=== PATIENT | male | born 1950 | race African-American/Black ===

== ENCOUNTER 2017-10-23 15:54 | Emergency (ER) | payer MEDICARE ==
[~2017-10-23] VITALS: Ht 193 cm; Wt 102.1 kg
[2017-10-23] MEDS ORDERED: TRAMADOL HCL50 MG ORAL (15:59)
[2017-10-23] MEDS ORDERED: AMLODIPINE BESY10 MG ORAL (15:59)
[2017-10-23 16:49] VITALS: BP 145/73
[2017-10-23 16:56] LABS: BASOPHILS % (AUTO) 1.2 % (0.0-2.0); EOSINOPHILS % (AUTO) 1.5 % (0.0-3.0); HEMATOCRIT 38.8 % (42.0-52.0); HEMOGLOBIN 12.4 G/DL (14.2-18.0); LYMPHOCYTES % (AUTO) 23.6 % (20.0-45.0); MEAN CORPUSCULAR VOLUME 74 FL (80-99); MONOCYTES % (AUTO) 6.6 % (1.0-10.0); NEUTROPHILS % (AUTO) 67.2 % (45.0-75.0); PLATELET COUNT 234 K/UL (150-450); RED BLOOD COUNT 5.22 M/UL (4.70-6.10); RED CELL DISTRIBUTION WIDTH 11.5 % (11.6-14.8); WHITE BLOOD COUNT 10.2 K/UL (4.8-10.8)
[2017-10-23] MEDS ORDERED: Albuterol/Ipratropium 3ml neb HHN ONE (17:00)
[2017-10-23 17:01] LABS: ANION GAP 10 mmol/L (5-15); BLOOD UREA NITROGEN 13 mg/dL (7-18); CALCIUM 8.5 MG/DL (8.5-10.1); CARBON DIOXIDE 25 MMOL/L (21-32); CHLORIDE 106 MMOL/L (98-107); CREATININE 0.9 MG/DL (0.55-1.30); POTASSIUM 3.3 MMOL/L (3.5-5.1); SODIUM 141 MMOL/L (136-145)
[2017-10-23 17:05] LABS: ALANINE AMINOTRANSFERASE 28 U/L (12-78); ALBUMIN 3.7 G/DL (3.4-5.0); ALBUMIN/GLOBULIN RATIO 0.9 (1.0-2.7); ALKALINE PHOSPHATASE 99 U/L (46-116); ASPARTATE AMINO TRANSFERASE 20 U/L (15-37); BILIRUBIN,TOTAL 0.8 MG/DL (0.2-1.0)
[2017-10-23] MEDS ORDERED: Morphine Sulfate 4mg/ml Inj IVP ONE ×2 (17:15→20:15)
[2017-10-23] MEDS ORDERED: Ketorolac 30mg Inj IV ONE (17:15)
[2017-10-23 17:17] LABS: APPEARANCE,URINE CLEAR; BILIRUBIN, URINE NEGATIVE (NEGATIVE); GLUCOSE, URINE (UA) NEGATIVE (NEGATIVE); KETONES,URINE NEGATIVE (NEGATIVE); LEUKOCYTE ESTERASE ,URINE 1+ (NEGATIVE); NITRITE,URINE NEGATIVE (NEGATIVE); PH,URINE 6 (4.5-8.0); PROTEIN,URINE 1+ (NEGATIVE); UROBILINOGEN,URINE 4 MG/DL (0.0-1.0)
[2017-10-23 17:19] LABS: COLOR,URINE YELLOW
[2017-10-23] MEDS ORDERED: Lidocaine 2% 100mg/5ml Carp IV ONE (18:30)
[2017-10-23] MEDS ORDERED: Dicyclomine HCl 10mg/5ml oral soln ORAL ONE (18:30)
[2017-10-23] MEDS ORDERED: DICYCLOMINE HCL10 MG PO (18:32)
[2017-10-23] MEDS ORDERED: OMEPRAZOLE20 M2 ORAL (18:32)
[2017-10-23 19:38] VITALS: BP 142/91
[2017-10-23] MEDS ORDERED: DiphenhydrAMINE 50mg/ml Inj IVP ONE (20:15)
[2017-10-23 21:30] VITALS: BP 140/89
[2017-10-23 21:37] VITALS: BP 140/89
--- NOTE | 2017-10-23 22:04 | Emergency Room Report ---
History of Present Illness General Chief Complaint: Abdominal Pain Source: Patient, Medical Record Present Illness HPI Patient is a 67-year-old male who presented after increased left-sided abdominal pain. Patient reports having increased crampy abdominal pain which is sharp in nature. This waxed and waned. He reported having this constantly since approximately one week ago. He denies any black or bloody stools. He denies any prior history of kidney stones. He denied any urinary frequency or other urinary symptoms. He had not been vomiting. The patient prior history of chronic hip pain. He was taking tramadol for pain regularly. Allergies: Coded Allergies: No Known Allergies (Unverified , 10/23/17) Patient History Past Medical History: see triage record Reviewed Nursing Documentation: PMH: Agreed; PSxH: Agreed Nursing Documentation-PMH Past Medical History: No History, Except For Hx Hypertension: Yes Hx Neurological Problems: Yes - chronic right hip pain Review of Systems All Other Systems: negative except mentioned in HPI Physical Exam Vital Signs Date Time Temp Pulse Resp B/P (MAP) Pulse Ox O2 Delivery O2 Flow Rate FiO2 10/23/17 15:59 98.7 78 18 151/88 95 Room Air 98.8 Sp02 EP Interpretation: reviewed, normal General Appearance: normal inspection, well appearing, no apparent distress, alert, GCS 15 Head: atraumatic ENT: normal ENT inspection, hearing grossly normal, normal voice Neck: normal inspection, full range of motion, supple, no bony tend Respiratory: normal inspection, lungs clear, normal breath sounds, no respiratory distress, no retraction, no wheezing Cardiovascular #1: regular rate, rhythm, no edema Gastrointestinal: normal inspection, normal bowel sounds, non tender, soft, no guarding, no hernia Genitourinary: no CVA tenderness Musculoskeletal: normal inspection, back normal, normal range of motion Neurologic: normal inspection, alert, responsive, speech normal Psychiatric: normal inspection, judgement/insight normal, mood/affect normal Skin: normal inspection, normal color, no rash Medical Decision Making Diagnostic Impression: Primary Impression: Abdominal pain Additional Impressions: Renal cyst Liver lesion Renal lesion ER Course Patient presented for abdominal pain. Differential diagnoses included ischemic bowel, appendicitis, perforated viscus, abdominal aortic aneurysm, peptic ulcer disease. Inferior myocardial infarction, viral gastroenteritis Because of complexity of patient's case laboratory testing and imaging studies were ordered. Laboratory testing was unremarkable. Patient was noted to have the CT of abdomen and pelvis read by radiology which showed no evidence of acute appendicitis or different diverticulitis or bowel obstruction. The patient was given pain medications. He was advised to follow-up with GI for possible endoscopy and further workup.The patient is advised to return if he began having any increased pain or other concerns. He is given prescription for acid blockers as well as for antispasmodics. Labs Test 10/23/17 16:30 White Blood Count 10.2 K/UL (4.8-10.8) Red Blood Count 5.22 M/UL (4.70-6.10) Hemoglobin 12.4 G/DL (14.2-18.0) Hematocrit 38.8 % (42.0-52.0) Mean Corpuscular Volume 74 FL (80-99) Mean Corpuscular Hemoglobin 23.8 PG (27.0-31.0) Mean Corpuscular Hemoglobin Concent 32.0 G/DL (32.0-36.0) Red Cell Distribution Width 11.5 % (11.6-14.8) Platelet Count 234 K/UL (150-450) Mean Platelet Volume 7.5 FL (6.5-10.1) Neutrophils (%) (Auto) 67.2 % (45.0-75.0) Lymphocytes (%) (Auto) 23.6 % (20.0-45.0) Monocytes (%) (Auto) 6.6 % (1.0-10.0) Eosinophils (%) (Auto) 1.5 % (0.0-3.0) Basophils (%) (Auto) 1.2 % (0.0-2.0) Urine Color Yellow Urine Appearance Clear Urine pH 6 (4.5-8.0) Urine Specific [place] 1.020 (1.005-1.035) Urine Protein 1+ (NEGATIVE) Urine Glucose (UA) Negative (NEGATIVE) Urine Ketones Negative (NEGATIVE) Urine Occult Blood Negative (NEGATIVE) Urine Nitrite Negative (NEGATIVE) Urine Bilirubin Negative (NEGATIVE) Urine Urobilinogen 4 MG/DL (0.0-1.0) Urine Leukocyte Esterase 1+ (NEGATIVE) Urine RBC 0-2 /HPF (0 - 0) Urine WBC 0-2 /HPF (0 - 0) Urine Squamous Epithelial Cells None /LPF (NONE/OCC) Urine Amorphous Sediment Few /LPF (NONE) Urine Bacteria Few /HPF (NONE) Sodium Level 141 MMOL/L (136-145) Potassium Level 3.3 MMOL/L (3.5-5.1) Chloride Level 106 MMOL/L (98-107) Carbon Dioxide Level 25 MMOL/L (21-32) Anion Gap 10 mmol/L (5-15) Blood Urea Nitrogen 13 mg/dL (7-18) Creatinine 0.9 MG/DL (0.55-1.30) Estimat Glomerular Filtration Rate > 60 mL/min (>60) Glucose Level 105 MG/DL (74-106) Calcium Level 8.5 MG/DL (8.5-10.1) Total Bilirubin 0.8 MG/DL (0.2-1.0) Aspartate Amino Transf (AST/SGOT) 20 U/L (15-37) Alanine Aminotransferase (ALT/SGPT) 28 U/L (12-78) Alkaline Phosphatase 99 U/L (46-116) Total Protein 7.6 G/DL (6.4-8.2) Albumin 3.7 G/DL (3.4-5.0) Globulin 3.9 g/dL Albumin/Globulin Ratio 0.9 (1.0-2.7) Lipase 104 U/L (73-393) Last Vital Signs Date Time Temp Pulse Resp B/P (MAP) Pulse Ox O2 Delivery O2 Flow Rate FiO2 10/23/17 21:30 98.4 74 15 140/89 99 Room Air 98.4 Status: improved Disposition: HOME, SELF-CARE Condition: Stable Scripts Omeprazole (OMEPRAZOLE) 20 Mg Capsule.dr 20 MG ORAL DAILY, #30 CAP Prov: Regulo Lackey 10/23/17 Dicyclomine Hcl* (DICYCLOMINE HCL*) 10 Mg Capsule 10 MG PO QID, #30 CAP Prov: Regulo Lackey 10/23/17 Referrals: NOT CHOSEN IPA/,REFERRING VIVIEN GUADALUPE Patient Instructions: Abdominal Pain, Adult Additional Instructions: Follow up with GI for persistent left side abdominal pain. Regulo Lackey Oct 23, 2017 22:04
--- NOTE | 2017-10-24 10:05 | Diagnostic Imaging Report ---
Indication: Abdominal pain Technique: Continuous helical transaxial imaging of the abdomen and pelvis was obtained from the lung bases to the pubic symphysis during intravenous contrast administration. Coronal 2-D reformats were also obtained. Study obtained in a Siemens sensation [address] Automatic Exposure Control was utilized. Total Dose length Product (DLP): 1039.[address] Dose Index Volume (CTDIvol): 18.16 mGy Comparison: None Findings: Lung bases are clear. Small hiatal hernia noted. Low density cyst demonstrated in the medial segment left lobe of the liver. Spleen is unremarkable. Few calcifications in the toña hepatis adjacent to the caudate lobe of the liver noted nonspecific. The pancreas and gallbladder are unremarkable. There is no biliary ductal dilatation. There are hypodensities in the right kidney likely cysts. Appendix is normal. Diverticula in the sigmoid colon region noted. Prostate is prominent measuring 5.3 x 6.8 cm on transaxial images. Bladder is relatively nondistended. Arterial calcifications are present. IMPRESSION: No acute findings appreciated. Multitude of incidental findings as described above. Normal appendix. [facility] has communicated the preliminary results to the Emergency Department. Their findings are largely concordant with this report. The CT scanner at [facility] is accredited by the [employer] and the scans are performed using dose optimization techniques as appropriate to a performed exam including Automatic Exposure control.
--- NOTE | 2017-10-27 17:38 | Cardiology Report ---
APPROVED REPORT EKG Measurement Heart [id number] Normal sinus rhythm Normal ECG
== END 2017-10-23 21:40 | disposition home or self-care (01) ==
LOC: EMR 16:35
DX: R10.9 Unspecified abdominal pain (principal); N28.1 Cyst of kidney, acquired; K76.9 Liver disease, unspecified; I10 Essential (primary) hypertension; M25.551 Pain in right hip; G89.29 Other chronic pain
CPT/HCPCS: 36415; 74177; 80053; 81003; 83690; 85025; 86850; 86900; 86901; 93005; 96374; 96375; 99284; J1200; J1885; J2270; Q9967; J7620

== ENCOUNTER 2017-10-26 10:05 | Inpatient (IN) | payer MEDICARE ==
[~2017-10-26] VITALS: Ht 198.1 cm; Wt 102.1 kg
[2017-10-26] VITALS (7 sets, daily range): BP systolic 140–156; BP diastolic 84–95
[~2017-10-26 10:05] MED LIST: AMLODIPINE BESY10 MG ORAL; DICYCLOMINE HCL10 MG PO; OMEPRAZOLE20 M2 ORAL; TRAMADOL HCL50 MG ORAL
--- NOTE | 2017-10-26 10:27 | Emergency Room Report ---
History of Present Illness General Chief Complaint: Abdominal Pain Source: Patient, Medical Record Present Illness HPI The patient returns to emergency department. He's been having abdominal pain for one week. He was evaluated here October [address] scan done. The pain is left-sided seems to radiate from the stomach down through the anterior flank area. He's taking antispasmodic which has not been helping. The pain is constant and aching and has been gradually worsened. He rates the pain at 10/ 10. It was transiently improved with morphine when he was last here. Denies fever or chills. No vomiting or change in bowels. No dysuria. Never with this pain in the past. No URI sy, anxiety, headache, cough, chest pain. Allergies: Coded Allergies: No Known Allergies (Unverified , 10/23/17) Patient History Past Medical History: see triage record Social History: Denies: smoking, alcohol use Social History Narrative with sig other Reviewed Nursing Documentation: PMH: Agreed; PSxH: Agreed Nursing Documentation-PMH Past Medical History: No History, Except For Hx Hypertension: Yes Hx Neurological Problems: Yes - chronic right hip pain Review of Systems All Other Systems: negative except mentioned in HPI Physical Exam Vital Signs Date Time Temp Pulse Resp B/P (MAP) Pulse Ox O2 Delivery O2 Flow Rate FiO2 10/26/17 10:09 98.3 71 18 156/85 95 Room Air 98.2 Sp02 EP Interpretation: reviewed, normal General Appearance: well appearing, no apparent distress, GCS 15 Head: normocephalic Eyes: bilateral eye normal inspection, bilateral eye PERRL ENT: moist mucus membranes Neck: supple Respiratory: lungs clear, normal breath sounds Cardiovascular #1: regular rate, rhythm Cardiovascular #2: 2+ radial (R) Gastrointestinal: normal inspection, normal bowel sounds, no mass, non- distended, no rebound, guarding - minimal guarding L anterior flank, tenderness Genitourinary: no CVA tenderness Musculoskeletal: back normal, gait/station normal, normal range of motion Neurologic: alert, oriented x3, grossly normal Psychiatric: mood/affect normal Skin: normal inspection, warm/dry Medical Decision Making Diagnostic Impression: Primary Impression: Abdominal pain Qualified Codes: R10.9 - Unspecified abdominal pain Additional Impression: Diverticulitis ER Course Patient presents with left-sided abdominal pain for one week. Differential includes diverticulitis, gastritis, renal stone amongst others. With a normal CT showing diverticula, diverticulitis is most likely. The patient needs to be reevaluated with labs and abdominal films. Also due to his age EKG will be performed. The patient will receive IV hydration and analgesia. EKG is normal. Chest x-ray minimal cardiomegaly. Abdominal films nonspecific bowel gas pattern. Labs with normal white count. Urinalysis clear. The patient required several doses of pain medication and the pain was adequately controlled but still significant. The abdominal exam was not surgical. However due to the fact the pain was difficult to control in the emergency department the patient was admitted for observation IV antibiotics and analgesia. Admit med, Dr. Granger. Laboratory Tests Test 10/26/17 10:30 10/26/17 12:00 White Blood Count 10.4 K/UL (4.8-10.8) Red Blood Count 5.47 M/UL (4.70-6.10) Hemoglobin 13.0 G/DL (14.2-18.0) L Hematocrit 41.7 % (42.0-52.0) L Mean Corpuscular Volume 76 FL (80-99) L Mean Corpuscular Hemoglobin 23.8 PG (27.0-31.0) L Mean Corpuscular Hemoglobin Concent 31.3 G/DL (32.0-36.0) L Red Cell Distribution Width 12.1 % (11.6-14.8) Platelet Count 231 K/UL (150-450) Mean Platelet Volume 7.4 FL (6.5-10.1) Neutrophils (%) (Auto) 65.9 % (45.0-75.0) Lymphocytes (%) (Auto) 26.0 % (20.0-45.0) Monocytes (%) (Auto) 5.3 % (1.0-10.0) Eosinophils (%) (Auto) 1.7 % (0.0-3.0) Basophils (%) (Auto) 1.1 % (0.0-2.0) Prothrombin Time 10.0 SEC (9.30-11.50) Prothrombin Time INR 1.0 (0.9-1.1) PTT 28 SEC (23-33) Sodium Level 139 MMOL/L (136-145) Potassium Level 3.9 MMOL/L (3.5-5.1) Chloride Level 105 MMOL/L (98-107) Carbon Dioxide Level 24 MMOL/L (21-32) Anion Gap 10 mmol/L (5-15) Blood Urea Nitrogen 15 mg/dL (7-18) Creatinine 0.9 MG/DL (0.55-1.30) Estimate Glomerular Filtration Rate > 60 mL/min (>60) Glucose Level 122 MG/DL (74-106) H Calcium Level 9.0 MG/DL (8.5-10.1) Total Bilirubin 0.9 MG/DL (0.2-1.0) Aspartate Amino Transferase (AST) 22 U/L (15-37) Alanine Aminotransferase (ALT) 25 U/L (12-78) Alkaline Phosphatase 96 U/L (46-116) Troponin I 0.000 ng/mL (0.000-0.056) Total Protein 7.8 G/DL (6.4-8.2) Albumin 3.9 G/DL (3.4-5.0) Globulin 3.9 g/dL Albumin/Globulin Ratio 1.0 (1.0-2.7) Lipase 160 U/L (73-393) Urine Color Pale yellow Urine Appearance Clear Urine pH 6.5 (4.5-8.0) Urine Specific [place] 1.010 (1.005-1.035) Urine Protein Negative (NEGATIVE) Urine Glucose (UA) Negative (NEGATIVE) Urine Ketones Negative (NEGATIVE) Urine Occult Blood Negative (NEGATIVE) Urine Nitrite Negative (NEGATIVE) Urine Bilirubin Negative (NEGATIVE) Urine Urobilinogen Normal MG/DL (0.0-1.0) Urine Leukocyte Esterase Negative (NEGATIVE) EKG Diagnostic Results Rate: normal Rhythm: NSR ST Segments: no acute changes Rhythm Strip Diag. Results EP Interpretation: yes Rhythm: NSR, no PVC's, no ectopy Chest X-Ray Diagnostic Results Chest X-Ray Diagnostic Results : Chest X-Ray Ordered: Yes # of Views/Limited/Complete: 1 View Indication: Other EP Interpretation: Yes Interpretation: no consolidation, no effusion, no pneumothorax Impression: No acute disease Electronically Signed by: Electronically signed by Rommel Barahona MD Other X-Ray Diagnostic Results Other X-Ray Diagnostic Results : X-Ray ordered: Abdomen # of Views/Limited Vs Complete: 2 View Indication: Pain EP Interpretation: Yes Interpretation: nonspecific bowel gas, no sbo, other - No masses Impression: Other Electronically Signed by: Electronically signed by Rommel Barahona MD Last Vital Signs Date Time Temp Pulse Resp B/P (MAP) Pulse Ox O2 Delivery O2 Flow Rate FiO2 10/26/17 13:57 97.9 68 18 140/95 93 97.9 10/26/17 13:19 Room Air Status: improved Disposition: ADMITTED INPATIENT Condition: Serious Referrals: NON PHYSICIAN (PCP) Rommel Barahona M.D. Oct 26, 2017 10:27
[2017-10-26] MEDS ORDERED: DiphenhydrAMINE 50mg/ml Inj IVP ONE ×2 (10:30→11:15)
[2017-10-26] MEDS ORDERED: fentaNYL 100 mcg/2 mL IV ONE (10:30)
[2017-10-26 10:43] LABS: BASOPHILS % (AUTO) 1.1 % (0.0-2.0); EOSINOPHILS % (AUTO) 1.7 % (0.0-3.0); HEMATOCRIT 41.7 % (42.0-52.0); MEAN CORPUSCULAR VOLUME 76 FL (80-99); MONOCYTES % (AUTO) 5.3 % (1.0-10.0); NEUTROPHILS % (AUTO) 65.9 % (45.0-75.0); PLATELET COUNT 231 K/UL (150-450); RED BLOOD COUNT 5.47 M/UL (4.70-6.10); RED CELL DISTRIBUTION WIDTH 12.1 % (11.6-14.8); WHITE BLOOD COUNT 10.4 K/UL (4.8-10.8)
[2017-10-26 11:14] LABS: ANION GAP 10 mmol/L (5-15); BLOOD UREA NITROGEN 15 mg/dL (7-18); CARBON DIOXIDE 24 MMOL/L (21-32); CHLORIDE 105 MMOL/L (98-107); CREATININE 0.9 MG/DL (0.55-1.30); POTASSIUM 3.9 MMOL/L (3.5-5.1); SODIUM 139 MMOL/L (136-145)
[2017-10-26] MEDS ORDERED: HYDROmorphone 1mg/ml Carpuject IVP ONE (11:15)
[2017-10-26 11:18] LABS: ALANINE AMINOTRANSFERASE 25 U/L (12-78); ALBUMIN 3.9 G/DL (3.4-5.0); ALKALINE PHOSPHATASE 96 U/L (46-116); ASPARTATE AMINO TRANSFERASE 22 U/L (15-37); BILIRUBIN,TOTAL 0.9 MG/DL (0.2-1.0)
--- NOTE | 2017-10-26 11:22 | Diagnostic Imaging Report ---
Indication: Abdominal pain Technique: Supine view of the abdomen Comparison: none Findings: Bowel gas pattern is unremarkable. No unusual masses or calcifications. Impression: No acute process
--- NOTE | 2017-10-26 11:23 | Diagnostic Imaging Report ---
Indication: Cough Technique: One view of the chest Comparison: none Findings: Lungs and pleural spaces are clear. Heart size is normal. There is degenerative thoracic spondylosis is incidentally noted Impression: No acute process
[2017-10-26 12:08] LABS: APPEARANCE,URINE CLEAR; BILIRUBIN, URINE NEGATIVE (NEGATIVE); COLOR,URINE PALE YELLOW; GLUCOSE, URINE (UA) NEGATIVE (NEGATIVE); KETONES,URINE NEGATIVE (NEGATIVE); LEUKOCYTE ESTERASE ,URINE NEGATIVE (NEGATIVE); NITRITE,URINE NEGATIVE (NEGATIVE); PH,URINE 6.5 (4.5-8.0); PROTEIN,URINE NEGATIVE (NEGATIVE); UROBILINOGEN,URINE NORMAL MG/DL (0.0-1.0)
[2017-10-26] MEDS ORDERED: Cefepime HCl 1 GM in D5W 55 ML IVPB ONE (12:15)
[2017-10-26] MEDS ORDERED: DiphenhydrAMINE 50mg/ml Inj IVP PRN (14:30)
[2017-10-26] MEDS: D5 1/2NS 1,000 ML IV SCH (16:01)
[2017-10-26] MEDS: traMADol 50mg tab ORAL PRN ×2 (17:56→23:23)
[2017-10-27] VITALS (10 sets, daily range): BP systolic 132–144; BP diastolic 5–89
--- NOTE | 2017-10-27 02:45 | Consultation ---
DATE OF CONSULTATION: 10/26/2017 GASTROENTEROLOGY CONSULTATION CONSULTING PHYSICIAN: Abner Moncada M.D. CHIEF COMPLAINT: I was asked to see this patient by Dr. Debbie Granger for evaluation of abdominal pain. HISTORY OF PRESENT ILLNESS: The patient is a pleasant 67-year-old male, who comes in to the hospital with one week of abdominal pain. He has no nausea or vomiting and his bowel movements are regular without any bleeding. The pain is unchanged with bowel movements or oral intake. He states that the pain is constant all day. This is a new pain and he did not have this before. He has had a colonoscopy about a year ago and some polyps were found. This was done at [place]. He denies any gastroesophageal reflux symptoms. CT scan done on 10/23/2017 when he came to the emergency room only showed diverticulosis. He went home and was readmitted due to a second emergency room presentation. He did have a small pacth of papules on his left torso. It is unclear whether it is shingles since is only a single patch. PAST MEDICAL HISTORY: History of hypertension, history of prostate enlargement, and history of neuropathy. MEDICATIONS: See the chart list for details. FAMILY HISTORY: Positive for brother having cancer. SOCIAL HISTORY: The patient is . He does not smoke or drink. REVIEW OF SYSTEMS: Otherwise negative. PHYSICAL EXAMINATION: GENERAL: This is a pleasant 67-year-old man, seen in his room. HEENT: Normocephalic and atraumatic. Sclerae anicteric. Oropharynx clear. NECK: Supple. CHEST: Clear to auscultation with a small patch of induration and possible blistering papules in the left chest wall posterior. ABDOMEN: Soft and nontender with good bowel sounds. EXTREMITIES: No edema. LABORATORY DATA: Laboratory data were noted. ASSESSMENT: This patient presents with constant abdominal pain of unclear etiology. Differential diagnosis from a gastrointestinal standpoint include peptic ulcer disease and therefore an endoscopy to be done to evaluate the upper GI tract. However, there is also a patch of blisters and papules on the left torso and therefore the possibility of shingles causing the pain can also be considered. There is only one patch and therefore the classic shingles presentation is not there. In addition, the patient's pain appears to significantly earlier than the stage of this skin patch. Nonetheless, that could be another consideration for atypical abdominal pain. The patient does state that the abdominal pain seems to radiate around his torso. RECOMMENDATIONS: 1. Endoscopy tomorrow. 2. Follow possible shingles. 3. Consider Dermatology or ID evaluation for papular patch on the left torso. Thank you for asking me to participate in the care of this patient. Abner Moncada M.D. DR: GIUSEPPE JOB#: [id number] CC: JOY
[2017-10-27] MEDS: D5 1/2NS 1,000 ML IV SCH ×2 (06:54→11:48)
--- NOTE | 2017-10-27 07:31 | Anethesia Preoperative Eval ---
Anesthesia Pre-op PMH/ROS General Date of Evaluation: Oct 27, 2017 Time of Evaluation: 07:31 Anesthesiologist: mayra ASA Score: ASA 3 Mallampati Score Class I : Soft palate, uvula, fauces, pillars visible Class II: Soft palate, uvula, fauces visible Class III: Soft palate, base of uvula visible Class IV: Only hard plate visible Mallampati Classification: Class II Surgeon: missy Diagnosis: abdominal pain Surgical Procedure: egd Anesthesia History: PONV Social History: smoking - nonsmoker Family History: no anesthesia problems Allergies: Coded Allergies: No Known Allergies (Unverified , 10/23/17) Medications: see eMAR Past Medical History Cardiovascular: Reports: HTN Gastrointestinal/Genitourinary: Reports: other - liver disease Anesthesia Pre-op Phys. Exam Physician Exam Last Vital Signs Date Time Temp Pulse Resp B/P (MAP) Pulse Ox O2 Delivery O2 Flow Rate FiO2 10/27/17 06:00 97.7 63 18 138/76 93 97.7 10/26/17 13:19 Room Air Constitutional: NAD Neurologic: CN 2-12 intact Cardiovascular: RRR Respiratory: CTA Gastrointestinal: S/NT/ND Airway Exam Mallampati Score: Class II MO: full Neck: supple TMD: 2fb ROM: full Teeth: loose Anesthesia Pre-op A/P Labs Hematology Test 10/26/17 10:30 White Blood Count 10.4 K/UL (4.8-10.8) Red Blood Count 5.47 M/UL (4.70-6.10) Hemoglobin 13.0 G/DL (14.2-18.0) L Hematocrit 41.7 % (42.0-52.0) L Mean Corpuscular Volume 76 FL (80-99) L Mean Corpuscular Hemoglobin 23.8 PG (27.0-31.0) L Mean Corpuscular Hemoglobin Concent 31.3 G/DL (32.0-36.0) L Red Cell Distribution Width 12.1 % (11.6-14.8) Platelet Count 231 K/UL (150-450) Mean Platelet Volume 7.4 FL (6.5-10.1) Neutrophils (%) (Auto) 65.9 % (45.0-75.0) Lymphocytes (%) (Auto) 26.0 % (20.0-45.0) Monocytes (%) (Auto) 5.3 % (1.0-10.0) Eosinophils (%) (Auto) 1.7 % (0.0-3.0) Basophils (%) (Auto) 1.1 % (0.0-2.0) Coagulation Test 10/26/17 10:30 Prothrombin Time 10.0 SEC (9.30-11.50) Prothromb Time International Ratio 1.0 (0.9-1.1) Activated Partial Thromboplast Time 28 SEC (23-33) Chemistry Test 10/26/17 10:30 Sodium Level 139 MMOL/L (136-145) Potassium Level 3.9 MMOL/L (3.5-5.1) Chloride Level 105 MMOL/L (98-107) Carbon Dioxide Level 24 MMOL/L (21-32) Anion Gap 10 mmol/L (5-15) Blood Urea Nitrogen 15 mg/dL (7-18) Creatinine 0.9 MG/DL (0.55-1.30) Estimat Glomerular Filtration Rate > 60 mL/min (>60) Glucose Level 122 MG/DL (74-106) H Calcium Level 9.0 MG/DL (8.5-10.1) Total Bilirubin 0.9 MG/DL (0.2-1.0) Aspartate Amino Transf (AST/SGOT) 22 U/L (15-37) Alanine Aminotransferase (ALT/SGPT) 25 U/L (12-78) Alkaline Phosphatase 96 U/L (46-116) Troponin I 0.000 ng/mL (0.000-0.056) Total Protein 7.8 G/DL (6.4-8.2) Albumin 3.9 G/DL (3.4-5.0) Globulin 3.9 g/dL Albumin/Globulin Ratio 1.0 (1.0-2.7) Lipase 160 U/L (73-393) Risk Assessment & Plan Assessment: asa3 Plan: mac Status Change Before Surgery: No Pre-Antibiotics Drug: ROSITA Tate Oct 27, 2017 07:31
[2017-10-27] MEDS ORDERED: Midazolam 2mg/2ml Inj IVP PRN (07:45)
[2017-10-27] MEDS ORDERED: Atropine Inj 1mg/10ml Syr IV PRN (07:45)
[2017-10-27] MEDS ORDERED: DiphenhydrAMINE 50mg/ml Inj IVP PRN (07:45)
[2017-10-27] MEDS ORDERED: fentaNYL 100 mcg/2 mL IV PRN (07:45)
[2017-10-27] MEDS ORDERED: Propofol 200mg/20ml IV ONE (08:00)
[2017-10-27] MEDS ORDERED: Lidocaine 1% MPF 10mg/ml 5ml ONE (08:00)
[2017-10-27] MEDS ORDERED: NS 500ML IV ONE (08:20)
--- NOTE | 2017-10-27 08:36 | Pre-Procedure Note/Attestation ---
Pre-Procedure Note/Attestation Complete Prior to Procedure Planned Procedure: not applicable Procedure Narrative: egd Indications for Procedure Pre-Operative Diagnosis: abd pain Attestation I attest that I discussed the nature of the procedure; its benefits; risks and complications; and alternatives (and the risks and benefits of such alternatives ), prior to the procedure, with the patient (or the patient's legal hardware supplies sales representative). I attest that, if there was a reasonable possibility of needing a blood transfusion, the patient (or the patient's legal hardware supplies sales representative) was given the [facility] standardized written summary, pursuant to the Jeffery Elian Blood Safety Act ([place] Health and Safety Code # 1645, as amended). I attest that I re-evaluated the patient just prior to the surgery and that there has been no change in the patient's H&P, except as documented below: KYREE GERMAIN Oct 27, 2017 08:36
--- NOTE | 2017-10-27 08:44 | Consultation ---
History of Present Illness General Date patient seen: Oct 27, 2017 Time patient seen: 07:30 - am Chief Complaint: Abdominal Pain Referring physician: Dr. Granger Reason for Consultation: Pain Present Illness HPI Patient admitted under the care of Dr. Granger c/o abdominal pain. He had also had h/o right hip pain recently receiving and injection. Now has also developed a rash on his hip and low back seen by ID and started on Acyclovir. We were consulted so patient would have adequate pain control while her in the hospital. Allergies: Coded Allergies: No Known Allergies (Unverified , 10/23/17) Medication History Scheduled Amlodipine Besylate* (Amlodipine Besylate*), 10 MG ORAL DAILY, (Reported) Dicyclomine Hcl* (Dicyclomine Hcl*), 10 MG PO QID Omeprazole (Omeprazole), 20 MG ORAL DAILY Scheduled PRN Tramadol Hcl* (Ultram*), 50 MG ORAL Q6H PRN for For Pain, (Reported) Patient History Healthcare decision maker Resuscitation status Full Code Advanced Directive on File Past Medical/Surgical History Past Medical/Surgical History: (1) Liver lesion (2) Renal lesion (3) Renal cyst (4) Diverticulitis Social History Social History: (1) H/O alcohol dependence Review of Systems Constitutional: Reports: no symptoms Eye: Reports: no symptoms ENT: Reports: no symptoms Respiratory: Reports: no symptoms Cardiovascular: Reports: no symptoms Gastrointestinal: Reports: abdominal pain Genitourinary: Reports: no symptoms Musculoskeletal: Reports: no symptoms Skin: Reports: rash, lesions Psychiatric: Reports: no symptoms Neurological: Reports: no symptoms Endocrine: Reports: no symptoms Hematologic/Lymphatic: Reports: no symptoms Physical Exam General Appearance: WD/WN, no apparent distress HEENT: PERRL, EOMI Neck: non-tender, normal alignment, supple Respiratory/Chest: lungs clear, normal breath sounds Cardiovascular/Chest: normal rate, regular rhythm Abdomen: soft, tender Extremities: non-tender, normal inspection Neurologic: alert, oriented x 3, responsive Physical Exam Narrative Rash in the left side in lower hips, and a little bit area in the back seems to have dermatomal appearance. Last 24 Hour Vital Signs Date Time Temp Pulse Resp B/P (MAP) Pulse Ox O2 Delivery O2 Flow Rate FiO2 10/27/17 06:00 97.7 63 18 138/76 93 97.7 10/27/17 00:00 98.1 62 16 140/84 93 98.1 10/26/17 21:00 97.6 80 17 153/86 94 97.6 10/26/17 15:45 97.7 68 18 145/86 95 97.7 10/26/17 13:57 97.9 68 18 140/95 93 97.9 10/26/17 13:51 97.9 68 18 140/95 93 97.9 10/26/17 13:19 98.2 56 18 151/84 95 Room Air 10/26/17 13:14 56 18 151/84 95 Room Air 10/26/17 12:08 98.2 10/26/17 12:08 98.2 10/26/17 12:01 79 18 151/86 95 Room Air 10/26/17 11:31 98.2 10/26/17 10:34 98.2 10/26/17 10:18 98.2 18 156/85 95 Room Air 98.2 10/26/17 10:09 98.3 71 18 156/85 95 Room Air 98.2 Intake and Output 10/26/17 10/27/17 19:00 07:00 Intake Total 1195 ml 780 ml Output Total 1100 ml Balance 1195 ml -320 ml Intake Oral 0 ml IV Total 1195 ml 780 ml Output Urine Total 1100 ml # Voids 2 Laboratory Tests Test 10/26/17 10:30 10/26/17 12:00 10/27/17 07:45 White Blood Count 10.4 K/UL (4.8-10.8) Pending Red Blood Count 5.47 M/UL (4.70-6.10) Pending Hemoglobin 13.0 G/DL (14.2-18.0) L Pending Hematocrit 41.7 % (42.0-52.0) L Pending Mean Corpuscular Volume 76 FL (80-99) L Pending Mean Corpuscular Hemoglobin 23.8 PG (27.0-31.0) L Pending Mean Corpuscular Hemoglobin Concent 31.3 G/DL (32.0-36.0) L Pending Red Cell Distribution Width 12.1 % (11.6-14.8) Pending Platelet Count 231 K/UL (150-450) Pending Mean Platelet Volume 7.4 FL (6.5-10.1) Pending Neutrophils (%) (Auto) 65.9 % (45.0-75.0) Pending Lymphocytes (%) (Auto) 26.0 % (20.0-45.0) Pending Monocytes (%) (Auto) 5.3 % (1.0-10.0) Pending Eosinophils (%) (Auto) 1.7 % (0.0-3.0) Pending Basophils (%) (Auto) 1.1 % (0.0-2.0) Pending Prothrombin Time 10.0 SEC (9.30-11.50) Prothromb Time International Ratio 1.0 (0.9-1.1) Activated Partial Thromboplast Time 28 SEC (23-33) Sodium Level 139 MMOL/L (136-145) Pending Potassium Level 3.9 MMOL/L (3.5-5.1) Pending Chloride Level 105 MMOL/L (98-107) Pending Carbon Dioxide Level 24 MMOL/L (21-32) Pending Anion Gap 10 mmol/L (5-15) Blood Urea Nitrogen 15 mg/dL (7-18) Pending Creatinine 0.9 MG/DL (0.55-1.30) Pending Estimat Glomerular Filtration Rate > 60 mL/min (>60) Pending Glucose Level 122 MG/DL (74-106) H Pending Calcium Level 9.0 MG/DL (8.5-10.1) Pending Total Bilirubin 0.9 MG/DL (0.2-1.0) Pending Aspartate Amino Transf (AST/SGOT) 22 U/L (15-37) Pending Alanine Aminotransferase (ALT/SGPT) 25 U/L (12-78) Pending Alkaline Phosphatase 96 U/L (46-116) Pending Troponin I 0.000 ng/mL (0.000-0.056) Total Protein 7.8 G/DL (6.4-8.2) Pending Albumin 3.9 G/DL (3.4-5.0) Pending Globulin 3.9 g/dL Pending Albumin/Globulin Ratio 1.0 (1.0-2.7) Lipase 160 U/L (73-393) Urine Color Pale yellow Urine Appearance Clear Urine pH 6.5 (4.5-8.0) Urine Specific [place] 1.010 (1.005-1.035) Urine Protein Negative (NEGATIVE) Urine Glucose (UA) Negative (NEGATIVE) Urine Ketones Negative (NEGATIVE) Urine Occult Blood Negative (NEGATIVE) Urine Nitrite Negative (NEGATIVE) Urine Bilirubin Negative (NEGATIVE) Urine Urobilinogen Normal MG/DL (0.0-1.0) Urine Leukocyte Esterase Negative (NEGATIVE) Height (Feet): 6 Height (Inches): 6.00 Weight (Pounds): 225 Medications Current Medications Medications (Trade) Dose Ordered Sig/Dalia Route PRN Reason Start Time Stop Time Status Last Admin Dose Admin Al Hydroxide/Mg Hydroxide (Mylanta) 15 ml Q1H PRN ORAL gi upset 10/27/17 07:45 10/27/17 16:00 Amlodipine Besylate (Norvasc) 10 mg DAILY ORAL 10/27/17 09:00 11/26/17 08:59 Atropine Sulfate (Atropine) 0.5 mg Q5M PRN IV HR less than 45BPM 10/27/17 07:45 10/27/17 16:00 Dextrose/Sodium Chloride 1,000 ml @ 65 mls/hr [id number] IV 10/26/17 15:30 11/25/17 15:29 10/26/17 16:01 Diphenhydramine HCl (Benadryl) 25 mg Q15M PRN IVP Itching 10/27/17 07:45 10/27/17 16:00 Diphenhydramine HCl (Benadryl) 25 mg Q6H PRN IVP Itching 10/26/17 14:30 11/25/17 14:29 10/27/17 01:37 Fentanyl Citrate (Sublimaze 100 mcg/2 mL) 25 mcg Q10M PRN IV Moderate Pain (Pain Scale 4-6) 10/27/17 07:45 10/27/17 16:00 Hydralazine HCl (Apresoline) 5 mg Q30M PRN IV SBP>160/DBP>90 10/27/17 07:45 10/27/17 16:00 Midazolam HCl (Versed 2mg/2ml vial) 1 mg Q15M PRN IVP For Anxiety 10/27/17 07:45 10/27/17 16:00 Ondansetron HCl (Zofran) 4 mg Q1H PRN IVP Nausea & Vomiting 10/27/17 07:45 10/27/17 16:00 Ondansetron HCl (Zofran) 4 mg Q6H PRN IVP Nausea & Vomiting 10/26/17 14:30 11/25/17 14:29 Pantoprazole (Protonix) 40 mg DAILY ORAL 10/27/17 09:00 11/26/17 08:59 Sodium Chloride 1,000 ml @ 10 mls/hr Q24H IVLG 10/27/17 07:36 10/27/17 09:35 Tramadol HCl (Ultram) 50 mg EVERY 4 HOURS PRN ORAL pain 10/26/17 16:45 11/02/17 16:44 10/26/17 23:23 Assessment/Plan Assessment/Plan (1) Abdominal pain (2) Right hip pain (3) Right hip OA (4) Herpes Zoster (5) Neuropathic pain We will started Tramadol 50mg PO 1 tab Q4H PRN severe pain and Lyrica 50mg PO 1 tab TID. D/W Dr. Bettencourt and he concurred. Thank you for consult PETE COMER Oct 27, 2017 08:44
[2017-10-27 08:49] LABS: EOSINOPHILS % (AUTO) 2.2 % (0.0-3.0); HEMOGLOBIN 12.6 G/DL (14.2-18.0); LYMPHOCYTES % (AUTO) 25.4 % (20.0-45.0); MEAN CORPUSCULAR VOLUME 76 FL (80-99); MONOCYTES % (AUTO) 4.9 % (1.0-10.0); NEUTROPHILS % (AUTO) 66.6 % (45.0-75.0); PLATELET COUNT 244 K/UL (150-450); RED BLOOD COUNT 5.23 M/UL (4.70-6.10); WHITE BLOOD COUNT 10.3 K/UL (4.8-10.8)
[2017-10-27 09:10] LABS: ALANINE AMINOTRANSFERASE 26 U/L (12-78); ALBUMIN 3.8 G/DL (3.4-5.0); ALKALINE PHOSPHATASE 83 U/L (46-116); ANION GAP 6 mmol/L (5-15); ASPARTATE AMINO TRANSFERASE 23 U/L (15-37); BILIRUBIN,TOTAL 1.3 MG/DL (0.2-1.0); BLOOD UREA NITROGEN 10 mg/dL (7-18); CALCIUM 8.8 MG/DL (8.5-10.1); CARBON DIOXIDE 29 MMOL/L (21-32); CHLORIDE 104 MMOL/L (98-107); POTASSIUM 3.9 MMOL/L (3.5-5.1); SODIUM 139 MMOL/L (136-145)
--- NOTE | 2017-10-27 09:45 | General Progress Note ---
Assessment/Plan Assessment/Plan Assessment - abd pain, ? etiology - suspected shingles, (L) torso Recommendations - EGD today - lidoderm patch to skin - po ad adan ENDOSCOPY FINDINGS - non erosive proximal gastritis - biopied - no finding to explain pain - suspect pain due to shingles Subjective Allergies: Coded Allergies: No Known Allergies (Unverified , 10/23/17) Subjective Feels OK/same no new complaints Objective Last 24 Hour Vital Signs Date Time Temp Pulse Resp B/P (MAP) Pulse Ox O2 Delivery O2 Flow Rate FiO2 10/27/17 09:13 98.3 66 20 140/5 98 Room Air 98.3 10/27/17 09:00 70 18 136/85 98 Nasal Cannula 3.0 10/27/17 08:52 67 21 132/80 98 Nasal Cannula 3.0 10/27/17 08:47 98.0 75 14 144/89 98 Nasal Cannula 3.0 98.0 10/27/17 06:00 97.7 63 18 138/76 93 97.7 10/27/17 00:00 98.1 62 16 140/84 93 98.1 10/26/17 21:00 97.6 80 17 153/86 94 97.6 10/26/17 15:45 97.7 68 18 145/86 95 97.7 10/26/17 13:57 97.9 68 18 140/95 93 97.9 10/26/17 13:51 97.9 68 18 140/95 93 97.9 10/26/17 13:19 98.2 56 18 151/84 95 Room Air 10/26/17 13:14 56 18 151/84 95 Room Air 10/26/17 12:08 98.2 10/26/17 12:08 98.2 10/26/17 12:01 79 18 151/86 95 Room Air 10/26/17 11:31 98.2 10/26/17 10:34 98.2 10/26/17 10:18 98.2 18 156/85 95 Room Air 98.2 10/26/17 10:09 98.3 71 18 156/85 95 Room Air 98.2 Intake and Output 10/26/17 10/27/17 19:00 07:00 Intake Total 1195 ml 780 ml Output Total 1100 ml Balance 1195 ml -320 ml Intake Oral 0 ml IV Total 1195 ml 780 ml Output Urine Total 1100 ml # Voids 2 Laboratory Tests 10/26/17 10:30: White Blood Count 10.4, Red Blood Count 5.47, Hemoglobin 13.0L, Hematocrit 41.7L , Mean Corpuscular Volume 76L, Mean Corpuscular Hemoglobin 23.8L, Mean Corpuscular Hemoglobin Concent 31.3L, Red Cell Distribution Width 12.1, Platelet Count 231, Mean Platelet Volume 7.4, Neutrophils (%) (Auto) 65.9, Lymphocytes (%) (Auto) 26.0, Monocytes (%) (Auto) 5.3, Eosinophils (%) (Auto) 1.7, Basophils (%) (Auto) 1.1, Prothrombin Time 10.0, Prothromb Time International Ratio 1.0, Activated Partial Thromboplast Time 28, Sodium Level 139, Potassium Level 3.9, Chloride Level 105, Carbon Dioxide Level 24, Anion Gap 10, Blood Urea Nitrogen 15, Creatinine 0.9, Estimat Glomerular Filtration Rate > 60, Glucose Level 122H, Calcium Level 9.0, Total Bilirubin 0.9, Aspartate Amino Transf (AST/SGOT) 22, Alanine Aminotransferase (ALT/SGPT) 25, Alkaline Phosphatase 96, Troponin I 0.000, Total Protein 7.8, Albumin 3.9, Globulin 3.9, Albumin/Globulin Ratio 1.0, Lipase 160 10/26/17 12:00: Urine Color Pale yellow, Urine Appearance Clear, Urine pH 6.5, Urine Specific [place] 1.010, Urine Protein Negative, Urine Glucose (UA) Negative, Urine Ketones Negative, Urine Occult Blood Negative, Urine Nitrite Negative, Urine Bilirubin Negative, Urine Urobilinogen Normal, Urine Leukocyte Esterase Negative 10/27/17 07:45: White Blood Count 10.3, Red Blood Count 5.23, Hemoglobin 12.6L, Hematocrit 40.0L , Mean Corpuscular Volume 76L, Mean Corpuscular Hemoglobin 24.0L, Mean Corpuscular Hemoglobin Concent 31.4L, Red Cell Distribution Width 12.0, Platelet Count 244, Mean Platelet Volume 8.3, Neutrophils (%) (Auto) 66.6, Lymphocytes (%) (Auto) 25.4, Monocytes (%) (Auto) 4.9, Eosinophils (%) (Auto) 2.2, Basophils (%) (Auto) 1.0, Sodium Level 139, Potassium Level 3.9, Chloride Level 104, Carbon Dioxide Level 29, Anion Gap 6, Blood Urea Nitrogen 10, Creatinine 1.0, Estimat Glomerular Filtration Rate > 60, Glucose Level 104, Calcium Level 8.8, Total Bilirubin 1.3H, Aspartate Amino Transf (AST/SGOT) 23, Alanine Aminotransferase (ALT/SGPT) 26, Alkaline Phosphatase 83, Total Protein 7.5, Albumin 3.8, Globulin 3.7, Albumin/Globulin Ratio 1.0, Direct Bilirubin [ Pending] Height (Feet): 6 Height (Inches): 6.00 Weight (Pounds): 225 Objective WDWN AA man NCAT supple CTA RRR soft NT ND no edema non focal skin: grouped vesicle/papule KYREE Whitfield Oct 27, 2017 09:44
[2017-10-27] MEDS: traMADol 50mg tab ORAL PRN ×3 (09:51→21:02)
[2017-10-27 10:30] LABS: BILIRUBIN,DIRECT 0.2 MG/DL (0.0-0.3)
--- NOTE | 2017-10-27 13:11 | Immediate Post-Op Evaluation ---
Immediate Post-Op Evalulation Immediate Post-Op Evalulation Procedure: egd w/ bx Date of Evaluation: Oct 27, 2017 Time of Evaluation: 08:59 IV Fluids: 150ml 0.9ns Blood Products: none Estimated Blood Loss: negligible Blood Pressure Systolic: 144 Blood Pressure Diastolic: 84 Pulse Rate: 71 Respiratory Rate: 18 O2 Sat by Pulse Oximetry: 100 Temperature (Fahrenheit): 8.0 Pain Score (1-10): 0 Nausea: No Vomiting: No Complications none Patient Status: awake, reacts, patent Hydration Status: adequate Drug: ROSITA Tate Oct 27, 2017 13:11
--- NOTE | 2017-10-27 13:13 | 48 Hour Post Anesthesia Eval ---
Post Anesthesia Evaluation Procedure: egd w/ bx Date of Evaluation: Oct 27, 2017 Time of Evaluation: 09:01 Blood Pressure Systolic: 145 0: 88 Pulse Rate: 77 Respiratory Rate: 18 Temperature (Fahrenheit): 98.0 O2 Sat by Pulse Oximetry: 100 Airway: patent Nausea: No Vomiting: No Pain Intensity: 0 Hydration Status: adequate Cardiopulmonary Status: stable Mental Status/LOC: patient returned to baseline Post-Anesthesia Complications: none Follow-up care needed: N/A ROSITA JOVEL Oct 27, 2017 13:13
--- NOTE | 2017-10-27 17:25 | Cardiology Report ---
APPROVED REPORT EKG Measurement Heart [id number] TN [id number] Normal sinus rhythm with sinus arrhythmia Normal ECG
--- NOTE | 2017-10-27 19:30 | Consultation ---
DATE OF CONSULTATION: 10/27/2017 INFECTIOUS DISEASE CONSULTATION CONSULTING PHYSICIAN: Delano Hilliard M.D. PRIMARY ATTENDING PHYSICIAN: Debbie Granger M.D. REASON FOR CONSULTATION: Herpes zoster. HISTORY OF PRESENT ILLNESS: This is a 67-year-old, male, admitted last night from home. He has history of abdominal pain and left flank pain for a week. He came to the ER and had a CT scan on 10/23/2017 that showed diverticulosis, but the patient's pain did not go away and developed some rash on the left back and area of lower lips. Pain is referred to left upper quadrant. PAST MEDICAL HISTORY: Significant for prostatic hypertrophy, hypertension, and diverticulosis as mentioned. ALLERGIES: No known drug allergies. MEDICATIONS: Getting amlodipine, Protonix, fentanyl, midazolam, Zofran, hydralazine, and atropine. SOCIAL HISTORY: , has no child. No history of smoking. Had history of heavy drinking in the past, but recently does not drink too much. REVIEW OF SYSTEMS: No fever. No chills. No nausea. No vomiting. He has some constipation for two days. He has some urinary problem. PHYSICAL EXAMINATION: GENERAL APPEARANCE: Well developed, no acute distress. VITAL SIGNS: Temperature 98.1 degrees, pulse 65, and blood pressure 144/82. HEAD AND NECK: [place] conjunctivae. HEART: S1 and S2 regular. LUNGS: Clear. ABDOMEN: Soft, obese. EXTREMITIES: No edema. SKIN: Rash in the left side in lower lips, and a little bit area in the back seems to have dermatomal appearance. LABORATORY AND DIAGNOSTIC DATA: WBC 10.3, hemoglobin 12.6, hematocrit 40, and platelets 244. Sodium 139, potassium 3.9, chloride 104, bicarbonate 21, BUN 10, creatinine 1, bilirubin is 1.3, but otherwise AST, ALT and alkaline phosphatase are within normal. IMPRESSION: 1. Herpes zoster that is localized. 2. Abdominal pain. The patient will go to endoscopy today. 3. Has history of diverticulosis. 4. Has prostatic hypertrophy. 5. Hypertension. RECOMMENDATION: He will be started on acyclovir. At the end of my exam, I thank Dr. Granger for involving me in the care of this patient. Delano Hilliard M.D. DR: PHILIPPE JOB#: [id number] CC: JOY
[2017-10-27] MEDS: Lyrica 50mg cap ORAL SCH (20:57)
--- NOTE | 2017-10-27 21:52 | Endoscopy Procedure Note ---
Endoscopy Procedure Note General Indication for Procedure: abd pain Procedures Performed: EGD Operative Findings/Diagnosis: prox shannan Specimen: yes Pt Tolerated Procedure Well: Yes Estimated Blood Loss: none Anesthesia Anesthesiologist: wale martin Anesthesia: moderate sedation Medications Medication Given: see anesthesia record Inserted Devices Implant(s) used?: No GI Core Measures 50 yrs or older w/o bx or poly: Not Applicable 10yrs. F/U not recommended: Not Applicable If not recommended, why?: KYREE GERMAIN Oct 27, 2017 21:52
--- NOTE | 2017-10-27 21:53 | Brief Operative Note ---
Immediate Post Operative Note Operative Note Chief Complaint: abd pain Pre-op Diagnosis: abd pain Procedure: EGD Bx Post-op Diagnosis: - non erosive proximal gastritis - biopied - no finding to explain pain - suspect pain due to shingles Specimen: yes Complications: none Condition: stable Fluids: recorded Estimated Blood Loss: none Drains: none Implant(s) used?: No KYREE GERMAIN Oct 27, 2017 21:53
--- NOTE | 2017-10-27 22:00 | History and Physical Report ---
DATE OF ADMISSION: 10/26/2017 HISTORY OF PRESENT ILLNESS: The patient is admitted for abdominal pain. The patient also complains that the pain radiates to the back/flank on the left side. It started about 1 week ago. He also appears to have lesions/ compatible with shingles at the area about the penis. The patient denies nausea, vomiting. Denies shortness of breath. Denies cough. Denies fever or chills. Denies diarrhea. Denies rectal bleeding. PAST MEDICAL HISTORY: Significant for hypertension, GERD, chronic pain syndrome, severe hip arthritis, and hypertension. PAST SURGICAL HISTORY: Foot surgery. SOCIAL HISTORY: History of smoking. History of drug abuse. History of alcohol abuse as well. The patient currently walks with a cane. MEDICATIONS: Amlodipine, omeprazole, and tramadol p.r.n. FAMILY HISTORY: Noncontributory. REVIEW OF SYSTEMS: HEENT: Denies headaches. RESPIRATORY: Denies shortness of breath. Denies cough. CARDIOVASCULAR: Denies chest pain. Denies orthopnea. GASTROINTESTINAL: Reports abdominal pain, does radiate to the left side/left flank and back as well. Denies nausea, vomiting, or diarrhea. Does have occasional heartburn. EXTREMITIES: Denies any pain in the lower extremities. NEUROLOGIC: Denies any change in speech pattern. PHYSICAL EXAMINATION: VITAL SIGNS: Temperature is 98.3, pulse is 66, blood pressure 140/50. HEENT: PERRLA. NECK: Supple. No lymphadenopathy. CHEST: Clear to auscultation. GASTROINTESTINAL: Soft, nontender, nondistended. No organomegaly. The patient does have vesicles compatible with shingles on the chest wall, torso on the left side, and the back. EXTREMITIES: No edema. Reflexes on both sides. NEUROLOGIC: Moves all four extremities. Sensory intact to light touch. Reflexes on both sides. LABORATORY DATA: WBC of 10.4, hemoglobin 13, platelets of 231,000. Sodium 139, potassium 3.9, BUN of 15, creatinine 0.9, glucose of 122. ASSESSMENT: 1. Abdominal pain. 2. Shingles on the left flank and chest wall area. PLAN: I have asked Dr. Bettencourt, Dr. Moncada, and Dr. Galvan to see the patient for the chronic pain management as well as for the abdominal pain as well as for the treatment of the zoster. Debbie Granger M.D. DR: Drea JOB#: [id number] CC:
[2017-10-28] VITALS (7 sets, daily range): BP systolic 124–147; BP diastolic 64–89
--- NOTE | 2017-10-28 01:00 | Procedure Note ---
DATE OF PROCEDURE: 10/27/2017 PROCEDURE: Upper gastrointestinal endoscopy with biopsy. SURGEON: Abner Moncada M.D. ANESTHESIA: Please see the separate anesthesiologist notes for details. PRE-ENDOSCOPIC DIAGNOSIS: Abdominal pain. POST-ENDOSCOPIC DIAGNOSES: 1. Mild proximal gastritis, which was nonerosive. 2. No evidence of ulcerations or mass lesions. 3. Status biopsy of the proximal stomach. DESCRIPTION OF PROCEDURE: The procedure, its risks, indications, alternatives, and possible complications were explained and informed consent was obtained. The patient was then sedated and diagnostic upper endoscope was introduced through the oropharynx and advanced to the duodenum without difficulty. The endoscope was then gradually withdrawn and the mucosa examined carefully. Findings are are described above. The endoscope was removed and the patient was sent to recovery in good condition. COMPLICATIONS: None. RECOMMENDATIONS: 1. Followup biopsy results. 2. Check and treat Helicobacter pylori if positive. 3. Outpatient colonoscopy. Abner Moncada M.D. DR: Beulah JOB#: [id number] CC:
[2017-10-28] MEDS: D5 1/2NS 1,000 ML IV SCH ×2 (04:27→23:08)
[2017-10-28] MEDS: traMADol 50mg tab ORAL PRN ×2 (04:27→23:09)
[2017-10-28] MEDS: Lyrica 50mg cap ORAL SCH ×3 (08:54→17:03)
--- NOTE | 2017-10-28 13:19 | Infectious Diseases Prog Note ---
Assessment/Plan Assessment/Plan A; herpes zoster Gastritis Diverticulosis HPN BPH P: Continue Acyclovir X 6 days Subjective ROS Limited/Unobtainable: No Constitutional: Reports: no symptoms Respiratory: Reports: no symptoms Cardiovascular: Reports: no symptoms Gastrointestinal/Abdominal: Reports: no symptoms Musculoskeletal: Reports: pain, other - in left posterior chest Allergies: Coded Allergies: No Known Allergies (Unverified , 10/23/17) Objective Vital Signs Last 24 Hour Vital Signs Date Time Temp Pulse Resp B/P (MAP) Pulse Ox O2 Delivery O2 Flow Rate FiO2 10/28/17 12:00 97.3 67 18 143/85 95 97.3 10/28/17 09:01 61 18 137/82 98 Room Air 10/28/17 08:54 61 137/82 10/28/17 08:00 97.3 58 18 137/82 98 97.3 10/28/17 04:27 97.5 59 20 133/81 93 Room Air 97.5 10/28/17 04:00 Room Air 10/28/17 00:50 99.0 64 20 124/75 95 Room Air 99.0 10/28/17 00:00 Room Air 10/27/17 20:00 Room Air 10/27/17 19:37 98.1 68 20 139/83 94 Room Air 98.1 10/27/17 16:00 98.1 71 18 136/77 93 98.1 Height (Feet): 6 Height (Inches): 6.00 Weight (Pounds): 225 General Appearance: no acute distress HEENT: mucous membranes moist Respiratory/Chest: lungs clear Cardiovascular: normal rate Abdomen: soft, non tender Extremities: no edema Skin: rash, other - in left posterior chest wall Laboratory Tests Test 10/28/17 12:09 Stool Occult Blood Negative (NEGATIVE) Current Medications Medications (Trade) Dose Ordered Sig/Dalia Route PRN Reason Start Time Stop Time Status Last Admin Dose Admin Acyclovir (Zovirax) 800 mg FIVE TIMES A DAY ORAL 10/27/17 13:00 11/26/17 12:59 10/28/17 13:03 Amlodipine Besylate (Norvasc) 10 mg DAILY ORAL 10/27/17 09:00 11/26/17 08:59 10/28/17 08:54 Dextrose/Sodium Chloride 1,000 ml @ 65 mls/hr [id number] IV 4/10/18 15:30 11/25/17 15:29 10/28/17 04:27 Diphenhydramine HCl (Benadryl) 25 mg Q6H PRN IVP Itching 10/26/17 14:30 11/25/17 14:29 10/27/17 01:37 Lidocaine (Lidoderm 5% PATCH) 1 patch DAILY TDERMAL 10/27/17 10:00 11/26/17 09:59 10/28/17 08:55 Ondansetron HCl (Zofran) 4 mg Q6H PRN IVP Nausea & Vomiting 10/26/17 14:30 11/25/17 14:29 Pantoprazole (Protonix) 40 mg DAILY ORAL 10/27/17 09:00 11/26/17 08:59 10/28/17 08:55 Pregabalin (Lyrica) 50 mg THREE TIMES A DAY ORAL 10/27/17 21:00 11/26/17 20:59 10/28/17 13:03 Tramadol HCl (Ultram) 50 mg EVERY 4 HOURS PRN ORAL pain 10/26/17 16:45 11/02/17 16:44 10/28/17 04:27 SHEKHAR PRAKASH Oct 28, 2017 13:19
--- NOTE | 2017-10-28 13:44 | General Progress Note ---
Assessment/Plan Assessment/Plan (1) Abdominal pain (2) Right hip pain (3) Right hip OA (4) Herpes Zoster (5) Neuropathic pain We will continue Tramadol and Lyrica. D/W Dr. Bettencourt and he concurred. Subjective Date patient seen: Oct 28, 2017 Time patient seen: 01:30 - pm Constitutional: Reports: no symptoms HEENT: Reports: no symptoms Cardiovascular: Reports: no symptoms Respiratory: Reports: no symptoms Gastrointestinal/Abdominal: Reports: abdominal pain Genitourinary: Reports: no symptoms Neurologic/Psychiatric: Reports: tingling Endocrine: Reports: no symptoms Hematologic/Lymphatic: Reports: no symptoms Allergies: Coded Allergies: No Known Allergies (Unverified , 10/23/17) Subjective Patient is sitting up in bed and reports that his pain has reduced on the Lyrica using the Tramadol as needed. Objective Last 24 Hour Vital Signs Date Time Temp Pulse Resp B/P (MAP) Pulse Ox O2 Delivery O2 Flow Rate FiO2 10/28/17 12:00 97.3 67 18 143/85 95 97.3 10/28/17 09:01 61 18 137/82 98 Room Air 10/28/17 08:54 61 137/82 10/28/17 08:00 97.3 58 18 137/82 98 97.3 10/28/17 04:27 97.5 59 20 133/81 93 Room Air 97.5 10/28/17 04:00 Room Air 10/28/17 00:50 99.0 64 20 124/75 95 Room Air 99.0 10/28/17 00:00 Room Air 10/27/17 20:00 Room Air 10/27/17 19:37 98.1 68 20 139/83 94 Room Air 98.1 10/27/17 16:00 98.1 71 18 136/77 93 98.1 Intake and Output 10/27/17 10/28/17 19:00 07:00 Intake Total 910 ml 1020 ml Output Total 0 ml Balance 910 ml 1020 ml Intake Oral 240 ml 240 ml IV Total 670 ml 780 ml Estimated Blood Loss 0 ml # Voids 3 4 # Bowel Movements 1 Laboratory Tests 10/28/17 12:09: Stool Occult Blood Negative Height (Feet): 6 Height (Inches): 6.00 Weight (Pounds): 225 General Appearance: no apparent distress, alert EENT: PERRL/EOMI, normal ENT inspection Neck: non-tender, normal alignment Cardiovascular: normal rate, regular rhythm Respiratory/Chest: lungs clear, normal breath sounds Abdomen: soft Extremities: normal range of motion, non-tender Edema: no edema noted Arm (L), no edema noted Arm (R), no edema noted Leg (L), no edema noted Leg (R), no edema noted Pedal (L), no edema noted Pedal (R), no edema noted Generalized Neurologic: alert, oriented x 3 Skin: rash PETE COMER Oct 28, 2017 13:44
[2017-10-28] MEDS ORDERED: D5 1/2NS 1000ml IV ONE (16:13)
--- NOTE | 2017-10-28 20:30 | General Progress Note ---
Assessment/Plan Problem List: (1) Abdominal pain ICD Codes: R10.9 - Unspecified abdominal pain SNOMED: [id number] Qualifiers: Qualified Codes: R10.9 - Unspecified abdominal pain Status: progressing Assessment/Plan shingles abdominal pain improving afebrile reviewed chart and labs Subjective ROS Limited/Unobtainable: Yes Allergies: Coded Allergies: No Known Allergies (Unverified , 10/23/17) Objective Last 24 Hour Vital Signs Date Time Temp Pulse Resp B/P (MAP) Pulse Ox O2 Delivery O2 Flow Rate FiO2 10/28/17 19:51 97.7 73 18 147/89 96 97.7 10/28/17 16:00 98.1 75 18 131/64 97 98.1 10/28/17 12:00 97.3 67 18 143/85 95 97.3 10/28/17 09:01 61 18 137/82 98 Room Air 10/28/17 08:54 61 137/82 10/28/17 08:00 97.3 58 18 137/82 98 97.3 10/28/17 04:27 97.5 59 20 133/81 93 Room Air 97.5 10/28/17 04:00 Room Air 10/28/17 00:50 99.0 64 20 124/75 95 Room Air 99.0 10/28/17 00:00 Room Air Intake and Output 10/27/17 10/28/17 19:00 07:00 Intake Total 910 ml 1020 ml Output Total 0 ml Balance 910 ml 1020 ml Intake Oral 240 ml 240 ml IV Total 670 ml 780 ml Estimated Blood Loss 0 ml # Voids 3 4 # Bowel Movements 1 Laboratory Tests 10/28/17 12:09: Stool Occult Blood Negative Height (Feet): 6 Height (Inches): 6.00 Weight (Pounds): 225 Neck: supple Cardiovascular: normal rate Respiratory/Chest: lungs clear Abdomen: soft Debbie Granger MD Oct 28, 2017 20:30
--- NOTE | 2017-10-28 21:56 | General Progress Note ---
Assessment/Plan Assessment/Plan Assessment - abd pain, ? etiology, ? related to zoster - suspected shingles, (L) torso - mild gastritis Recommendations - f/u path - lidoderm patch to skin - po ad adan Subjective Allergies: Coded Allergies: No Known Allergies (Unverified , 10/23/17) Subjective Feels OK/same no new complaints Objective Last 24 Hour Vital Signs Date Time Temp Pulse Resp B/P (MAP) Pulse Ox O2 Delivery O2 Flow Rate FiO2 10/28/17 19:51 97.7 73 18 147/89 96 97.7 10/28/17 16:00 98.1 75 18 131/64 97 98.1 10/28/17 12:00 97.3 67 18 143/85 95 97.3 10/28/17 09:01 61 18 137/82 98 Room Air 10/28/17 08:54 61 137/82 10/28/17 08:00 97.3 58 18 137/82 98 97.3 10/28/17 04:27 97.5 59 20 133/81 93 Room Air 97.5 10/28/17 04:00 Room Air 10/28/17 00:50 99.0 64 20 124/75 95 Room Air 99.0 10/28/17 00:00 Room Air Intake and Output 10/27/17 10/28/17 19:00 07:00 Intake Total 910 ml 1020 ml Output Total 0 ml Balance 910 ml 1020 ml Intake Oral 240 ml 240 ml IV Total 670 ml 780 ml Estimated Blood Loss 0 ml # Voids 3 4 # Bowel Movements 1 Laboratory Tests 10/28/17 12:09: Stool Occult Blood Negative Height (Feet): 6 Height (Inches): 6.00 Weight (Pounds): 225 Objective WDWN AA man NCAT supple CTA RRR soft NT ND no edema non focal skin: grouped vesicle/papule L torso KYREE GERMAIN Oct 28, 2017 21:56
[2017-10-29] VITALS: BP 148/86
[2017-10-29 03:23] VITALS: BP 145/87
[2017-10-29] MEDS: traMADol 50mg tab ORAL PRN ×2 (06:34→13:26)
[2017-10-29 08:08] VITALS: BP 130/81
[2017-10-29] MEDS: Lyrica 50mg cap ORAL SCH ×2 (08:30→13:25)
--- NOTE | 2017-10-29 09:02 | General Progress Note ---
Assessment/Plan Assessment/Plan (1) Abdominal pain (2) Right hip pain (3) Right hip OA (4) Herpes Zoster (5) Neuropathic pain We will continue Tramadol and Lyrica. An Rx for Lyrica was written for patient and he was advised to f/u with PMD when discharged. D/W Dr. Bettencourt and he concurred. Subjective Date patient seen: Oct 29, 2017 Time patient seen: 07:00 - am Allergies: Coded Allergies: No Known Allergies (Unverified , 10/23/17) Subjective Constitutional: Reports: no symptoms HEENT: Reports: no symptoms Cardiovascular: Reports: no symptoms Respiratory: Reports: no symptoms Gastrointestinal/Abdominal: Reports: abdominal pain Genitourinary: Reports: no symptoms Neurologic/Psychiatric: Reports: tingling Endocrine: Reports: no symptoms Hematologic/Lymphatic: Reports: no symptoms Subjective Patient laying in bed and reports pain has been tolerated well. Objective Last 24 Hour Vital Signs Date Time Temp Pulse Resp B/P (MAP) Pulse Ox O2 Delivery O2 Flow Rate FiO2 10/29/17 08:31 72 130/81 10/29/17 08:25 97.7 10/29/17 08:08 97.7 72 18 130/81 98 97.7 10/29/17 06:34 97.7 10/29/17 03:23 97.7 69 18 145/87 96 Room Air 97.7 10/29/17 00:00 97.7 55 18 148/86 96 97.7 10/28/17 23:09 97.7 10/28/17 19:51 97.7 73 18 147/89 96 97.7 10/28/17 16:00 98.1 75 18 131/64 97 98.1 10/28/17 12:00 97.3 67 18 143/85 95 97.3 10/28/17 09:01 61 18 137/82 98 Room Air Intake and Output 10/28/17 10/29/17 19:00 07:00 Intake Total 1260 ml 630 ml Output Total 750 ml 650 ml Balance 510 ml -20 ml Intake Oral 480 ml 240 ml IV Total 780 ml 390 ml Output Urine Total 750 ml 650 ml Laboratory Tests 10/28/17 12:09: Stool Occult Blood Negative Height (Feet): 6 Height (Inches): 6.00 Weight (Pounds): 225 Objective General Appearance: no apparent distress, alert EENT: PERRL/EOMI, normal ENT inspection Neck: non-tender, normal alignment Cardiovascular: normal rate, regular rhythm Respiratory/Chest: lungs clear, normal breath sounds Abdomen: soft Extremities: normal range of motion, non-tender Edema: no edema noted Arm (L), no edema noted Arm (R), no edema noted Leg (L), no edema noted Leg (R), no edema noted Pedal (L), no edema noted Pedal (R), no edema noted Generalized Neurologic: alert, oriented x 3 Skin: rash PETE COMER Oct 29, 2017 09:02
[2017-10-29 11:35] VITALS: BP 138/78
--- NOTE | 2017-10-29 12:37 | Infectious Diseases Prog Note ---
Assessment/Plan Assessment/Plan A; herpes zoster Gastritis Diverticulosis HPN BPH P: Continue Acyclovir X 5 days agree with discharge Subjective ROS Limited/Unobtainable: No Constitutional: Reports: no symptoms Respiratory: Reports: no symptoms Gastrointestinal/Abdominal: Reports: no symptoms Genitourinary: Reports: no symptoms Musculoskeletal: Reports: pain, other - in left flank Allergies: Coded Allergies: No Known Allergies (Unverified , 10/23/17) Objective Vital Signs Last 24 Hour Vital Signs Date Time Temp Pulse Resp B/P (MAP) Pulse Ox O2 Delivery O2 Flow Rate FiO2 10/29/17 11:35 97.9 69 18 138/78 99 97.9 10/29/17 08:31 72 130/81 10/29/17 08:25 97.7 10/29/17 08:08 97.7 72 18 130/81 98 97.7 10/29/17 06:34 97.7 10/29/17 03:23 97.7 69 18 145/87 96 Room Air 97.7 10/29/17 00:00 97.7 55 18 148/86 96 97.7 10/28/17 23:09 97.7 10/28/17 19:51 97.7 73 18 147/89 96 97.7 10/28/17 16:00 98.1 75 18 131/64 97 98.1 Height (Feet): 6 Height (Inches): 6.00 Weight (Pounds): 225 General Appearance: no acute distress HEENT: mucous membranes moist Respiratory/Chest: lungs clear Cardiovascular: normal rate Abdomen: soft, non tender Extremities: no edema Skin: rash, other - left posterior chest Neurologic/Psychiatric: alert, oriented x 3, responsive Current Medications Medications (Trade) Dose Ordered Sig/Dalia Route PRN Reason Start Time Stop Time Status Last Admin Dose Admin Acyclovir (Zovirax) 800 mg FIVE TIMES A DAY ORAL 10/27/17 13:00 11/03/17 12:59 10/29/17 10:39 Amlodipine Besylate (Norvasc) 10 mg DAILY ORAL 10/27/17 09:00 11/26/17 08:59 10/29/17 08:31 Dextrose/Sodium Chloride 1,000 ml @ 65 mls/hr [id number] IV 10/26/17 15:30 11/25/17 15:29 10/28/17 23:08 Diphenhydramine HCl (Benadryl) 25 mg Q6H PRN IVP Itching 10/26/17 14:30 11/25/17 14:29 10/27/17 01:37 Lidocaine (Lidoderm 5% PATCH) 1 patch DAILY TDERMAL 10/27/17 10:00 11/26/17 09:59 10/29/17 08:32 Ondansetron HCl (Zofran) 4 mg Q6H PRN IVP Nausea & Vomiting 10/26/17 14:30 11/25/17 14:29 Pantoprazole (Protonix) 40 mg DAILY ORAL 10/27/17 09:00 11/26/17 08:59 10/29/17 08:31 Pregabalin (Lyrica) 50 mg THREE TIMES A DAY ORAL 10/27/17 21:00 11/26/17 20:59 10/29/17 08:30 Tramadol HCl (Ultram) 50 mg EVERY 4 HOURS PRN ORAL pain 10/26/17 16:45 11/02/17 16:44 10/29/17 06:34 SHEKHAR PRAKASH Oct 29, 2017 12:37
[2017-10-29] MEDS ORDERED: ACYCLOVIR400 MG ORAL (12:46)
--- NOTE | 2017-10-30 09:52 | Discharge Summary ---
Discharge Summary Discharge Summary Discharge Summary DATE OF ADMISSION: 10/26/2017 DATE OF DISCHARGE: 10/29/2017 REASON FOR ADMISSION: 67 years old male with past medical history significant of hypertension, BPH, presented with abdominal pain. He was evaluated a week ago and had a CT scan done at that time which revealed diverticular disease, but no acute findings. Pain was left sided, radiating from the stomach down to the anterior flank area. Patient was taken antispasmodic without significant relief. Patient described pain as constant and aching, and was rating it 10 out of 10 on a scale 1-10. He denied fever or chills. Pain improved transiently with morphine when he was in emergency department prior to this time. No vomiting, no change in bowel movements, no dysuria. No prior this kind of pain . On physical examination patient demonstrated torso lesions, compatible with shingles. No leukocytosis ,WBC -10.4, s mild anemia with hemoglobin -13 hematocrit - 41.7. Troponin negative, EKG revealed sinus rhythm with sinus arrhythmia. Stable electrolytes and renal parameters, stable LFT . ED doctor initially felt that patient may have diverticulitis, given findings of diverticular disease on recent CT scan. Patient weas admitted with diagnoses of abdominal pain , probable shingles for further management CONSULTANTS: GI specialist Dr. Moncada ID specialist-dr Hooepr Pain specialist [facility]: Patient admitted. Patient started on the IV hydration. GI consult was requested. Pain management was addressed. Antiemetics provided as needed. Patient undergone upper endoscopy which revealed mild proximal gastritis, but no ulceration and no masses. Pathology report revealed mild gastritis , no Helicobacter infection. CXR revealed no acute cardiopulmonary pathology. Abdominal x-ray revealed no acute intra-abdominal findings. Patient was on PPI. ID specialist closely followed. ID started patient on Acyclovir for herpes zoster infection. Patient will need to complete the course at home. Pain management consult was requested. Pain specialist seen and evaluated the patient and started patient on Tramadol and Lyrica. GI specialist feltb that at least partially abdominal pain was related to herpes zoster infection, and started patient additionally on Lidoderm patch. Home medications were resumed. Blood pressure was managed with calcium channel cassy and remained stable. Patient clinically improved. Pain was controlled with current regimen. Patient was able to tolerate diet. Patient was stable for discharge FINAL DIAGNOSES: Abdominal pain possibly due to herpes zoster infection as well as gastritis. Herpes zoster Gastritis Diverticulosis Hypertension BPH Neuropathic pain. DISCHARGE MEDICATIONS: See Medication Reconciliation list. DISCHARGE INSTRUCTIONS: Patient was discharged home with home health services. Follow up with primary care provider in one week. I have been assigned to dictate discharge summary for this account. I was not involved in the patient's management. Elio ([facility],Flores FIELDS Oct 30, 2017 09:52
== END 2017-10-29 13:30 | disposition home health service (06) | DRG 596 ==
LOC: EMR 10:22 → 4W 11:29 → EDBEDREQ 11:47 → 4W 12:51
PROC: 0DB68ZX Excision of Stomach, Via Natural or Artificial Opening Endoscopic, Diagnostic (ICD-10-PCS; principal; 2017-10-26)
DX: B02.9 Zoster without complications (principal); I10 Essential (primary) hypertension; N40.0 Benign prostatic hyperplasia without lower urinary tract symptoms; R10.9 Unspecified abdominal pain; K29.70 Gastritis, unspecified, without bleeding; K57.90 Diverticulosis of intestine, part unspecified, without perforation or abscess without bleeding; M16.11 Unilateral primary osteoarthritis, right hip; G62.9 Polyneuropathy, unspecified; D64.9 Anemia, unspecified
CPT/HCPCS: 36415; 71045; 74018; 80053; 81003; 82248; 82270; 83690; 84484; 85025; 85610; 85730; 93005; 94003; 94150; 99285; J2405

== ENCOUNTER 2018-06-19 03:53 | Emergency (ER) | payer MEDICARE ==
[~2018-06-19] VITALS: Ht 193 cm; Wt 106.6 kg
[~2018-06-19 03:53] MED LIST changes: +ACYCLOVIR400 MG ORAL
[2018-06-19] MEDS ORDERED: TERAZOSIN HCL1 MG ORAL (04:16)
[2018-06-19 04:20] VITALS: BP 162/83
[2018-06-19] MEDS ORDERED: Tamsulosin 0.4mg cap ORAL STA (04:29)
[2018-06-19] MEDS ORDERED: TAMSULOSIN HCL0.4 MG ORAL (04:34)
--- NOTE | 2018-06-19 04:34 | Emergency Room Report ---
History of Present Illness General Chief Complaint: Male Urogenital Problems Source: Patient Present Illness HPI 68M c/o cannot void. He has had same problem in the past but it has been years. Urologist advised patient not to leave indwelling Garcia and pt. requests straight catheterization. He typically has catheters at home. Also is already on Flomax but ran out and is waiting at pharmacy today to p/u. No dysuria, no fever, no abd pain except bladder distention. Allergies: Coded Allergies: No Known Allergies (Unverified , 10/23/17) Nursing Documentation-PMH Hx Cardiac Problems: No Hx Hypertension: Yes Hx Cancer: No Hx Gastrointestinal Problems: No - enlarged prostate Hx Neurological Problems: Yes - chronic pain in the right hip Review of Systems Genitourinary: Reports: see HPI, retention All Other Systems: limited Physical Exam Vital Signs Date Time Temp Pulse Resp B/P (MAP) Pulse Ox O2 Delivery O2 Flow Rate FiO2 06/19/18 04:12 97.9 92 11 162/83 97 Room Air General Appearance: well appearing, moderate distress Head: normocephalic, atraumatic ENT: hearing grossly normal, normal voice Neck: full range of motion, supple Respiratory: no respiratory distress, speaking full sentences Musculoskeletal: no calf tenderness Neurologic: alert, normal gait Psychiatric: mood/affect normal Skin: no rash Medical Decision Making Diagnostic Impression: Primary Impression: Urinary retention due to benign prostatic hyperplasia ER Course much improved after straight cath 700 cc urine Last Vital Signs Date Time Temp Pulse Resp B/P (MAP) Pulse Ox O2 Delivery O2 Flow Rate FiO2 06/19/18 04:12 97.9 92 11 162/83 97 Room Air Status: improved Disposition: HOME, SELF-CARE Condition: Improved Scripts Tamsulosin Hcl (TAMSULOSIN HCL*) 0.4 Mg Cap.er.24h 0.4 MG ORAL BEDTIME, #30 CAP Prov: Salinas Gomez M.D. 06/19/18 Patient Instructions: Acute Urinary Retention, Male, [id number] Salinas Gomez M.D. Jun 19, 2018 04:34
[2018-06-19 05:06] VITALS: BP 162/83
== END 2018-06-19 05:00 | disposition home or self-care (01) ==
LOC: EMR 04:30
DX: N40.1 Benign prostatic hyperplasia with lower urinary tract symptoms (principal); R33.8 Other retention of urine; G89.29 Other chronic pain; M25.551 Pain in right hip; I10 Essential (primary) hypertension
CPT/HCPCS: 51701; 99283